=== PATIENT | male | born 2000 | race African-American/Black ===

== ENCOUNTER 2022-10-31 13:49 | Emergency (ER) | payer MEDICAID ==
[~2022-10-31] VITALS: Ht 180.3 cm; Wt 109.0 kg
[2022-10-31 14:10] VITALS: BP 134/82
[2022-10-31] MEDS ORDERED: ALBU6.7H15 INH (14:13)
[2022-10-31] MEDS ORDERED: P50 MT (14:13)
== END 2022-10-31 14:25 | disposition home or self-care (01) ==
LOC: ER 13:49
DX: J45.901 Unspecified asthma with (acute) exacerbation (principal)
CPT/HCPCS: 99283